=== PATIENT | female | born 1990 | race American Indian/Alaskan Native ===

== ENCOUNTER 2017-04-14 18:36 | Emergency (ER) | payer SELFPAY ==
--- NOTE | 2017-04-14 18:41 | Emergency Department Report ---
Chief Complaint: Wound/Laceration Stated Complaint: LAC ON LT FOOT Time Seen by Provider: 04/14/17 18:39 - HPI History of Present Illness: PT states this morning she stepped on broken glass. PT states she stepped on the glass around 1000. PT states went to work and had to leave an hour early due to the pain. - ROS Review of Systems: + laceration + foot pain - Exam Physical Exam: pt ambulatory with limp in triage MSE screening note: Focused history and physical exam performed. Due to findings the following was ordered: xr ED Disposition for MSE Condition: Stable
--- NOTE | 2017-04-14 19:23 | Emergency Department Report ---
ED Laceration HPI - HPI Chief Complaint: Wound/Laceration Stated Complaint: LAC ON LT FOOT Time Seen by Provider: 04/14/17 18:39 Tetanus Status: Up to Date Laceration Symptoms: Yes Pain, No Foreign Body Sensation, No Numbness, No Weakness Other History: 27-year-old female past medical history asthma presents with complaint of accidentally stepping on glass at home this morning. Patient sustained laceration to base of left great toe. Patient states she received a tetanus update earlier this year. I laceration is visible straight just below joint of the first toe on the plantar aspect of foot. ED Review of Systems ROS: Stated complaint: LAC ON LT FOOT Other details as noted in HPI Constitutional: denies: chills, fever Eyes: denies: eye pain, eye discharge, vision change ENT: denies: ear pain, throat pain Respiratory: denies: cough, shortness of breath, wheezing Cardiovascular: denies: chest pain, palpitations Endocrine: no symptoms reported Gastrointestinal: denies: abdominal pain, nausea, diarrhea Genitourinary: denies: urgency, dysuria, discharge Musculoskeletal: denies: back pain, joint swelling, arthralgia Skin: denies: rash, lesions Neurological: denies: headache, weakness, paresthesias Psychiatric: denies: anxiety, depression Hematological/Lymphatic: denies: easy bleeding, easy bruising ED Past Medical Hx - Past Medical History Hx Hypertension: No Hx Heart Attack/AMI: No Hx Congestive Heart Failure: No Hx Diabetes: No Hx Deep Vein Thrombosis: No Hx Liver Disease: No Hx Renal Disease: No Hx Sickle Cell Disease: No Hx Seizures: No Hx Psychiatric Treatment: Yes Hx Asthma: No Hx COPD: No Hx HIV: No Additional medical history: depression, bipolar - Surgical History Past Surgical History?: Yes Hx Pacemaker: No Hx Internal Defibrillator: No Additional Surgical History: c-sections - Social History Smoking Status: Former Smoker Substance Use Type: Alcohol - Medications Home Medications: Home Medications Medication Instructions Recorded Confirmed Last Taken Type Famotidine [Pepcid] 20 mg PO BID #40 tablet 05/09/14 Unknown Rx Hyoscyamine Subl [Levsin Sl] 0.125 mg SL Q4HR PRN #20 tablet 05/09/14 Unknown Rx Promethazine [Phenergan] 25 mg PO Q6H PRN #30 tablet 05/09/14 Unknown Rx Ibuprofen [Motrin] 600 mg PO Q8H PRN #30 tablet 04/14/17 Unknown Rx Sulfamethoxazole/Trimethoprim 1 each PO BID #14 tablet 04/14/17 Unknown Rx [Bactrim DS TAB] Laceration Physical Exam - Exam General: Vital signs noted. No distress. Alert and acting appropriately. Wound Length (cm): 3 Laceration Location: Lower Extremity (base of left great toe) Laceration Exam: Yes Normal Distal CMS, No Foreign Body, No Exposed Tendon, Vessel, or Nerve, No Tendon Injury ED Course Vital Signs 04/14/17 18:40 Temperature 99.2 F Pulse Rate 104 H Respiratory 16 Rate Blood Pressure 146/91 O2 Sat by Pulse 100 Oximetry - Laceration /Wound Repair Left Distal Toe Wound Location: lower extremity (base of left distal great toe ) Wound Length (cm): 3 Wound's Depth, Shape: superficial Irrigated w/ Saline (ccs): 50 Betadine Prep?: Yes Anesthesia: Lidocaine w/ Epi Volume Anesthetic (ccs): 4 Wound Debrided: minimal Wound Repaired With: sutures, Dermabond (Dermabond applied to the distal edges of the wound) Suture Size/Type: 5:0, proline Number of Sutures: 5 Layer Closure?: No Sterile Dressing Applied?: Yes Progress: Area anesthetized with lidocaine with epinephrine, good local anesthesia achieved, wound probed for any glass fragments no glass fragments on probing of the wound. Good closure achieved with 5-0 proline sutures, 5 placed. Dermabond used on distal edges of wound. Wrapped with gauze afterward. Minimal bleeding seizure tolerated well ED Medical Decision Making - Medical Decision Making A/P: Left foot Laceration 1-sutures to be removed in 10-14 days 2-tetanus vaccination up-to-date as per patient 3-Motrin when necessary, triple antibiotic ointment 4-patient's advised to return to the ED for any fevers chills pus drainage erythema at site of laceration 5- foot neurovascularly intact distal sensation and capillary refill intact, good closure achieved with sutures Critical care attestation.: If time is entered above; I have spent that time in minutes in the direct care of this critically ill patient, excluding procedure time. ED Disposition Clinical Impression: Foot laceration Qualifiers: Encounter type: initial encounter Laterality: left Qualified Code(s): S91.312A - Laceration without foreign body, left foot, initial encounter Disposition: TO HOME OR SELFCARE Is pt being admited?: No Does the pt Need Aspirin: No Condition: Stable Instructions: Suture Care (ED), Laceration (ED), Skin Adhesive Care (ED) Additional Instructions: Patient to return to the ED and approximately 10-12 days for suture removal Prescriptions: Ibuprofen [Motrin] 600 mg PO Q8H PRN #30 tablet PRN Reason: Pain Sulfamethoxazole/Trimethoprim [Bactrim DS TAB] 1 each PO BID #14 tablet Time of Disposition: 20:48
[2017-04-14] MEDS ORDERED: MOTRIN PO ONE (19:25)
[2017-04-14] MEDS ORDERED: TRIPLE ANTIBIOTIC TP ONE (19:25)
[2017-04-14] MEDS ORDERED: XYLOCAINE 2%/ EPI 1:200,000 INFILTRATI ONE (19:25)
[2017-04-14] MEDS ORDERED: XYLOCAINE 2%/EPI 1:100,000 INFILTRATI ONE (19:37)
[2017-04-14 20:31] VITALS: BP 139/82
== END 2017-04-14 20:30 | disposition home or self-care (01) ==
LOC: ED 18:36
DX: S91.312A Laceration without foreign body, left foot, initial encounter (principal); F31.9 Bipolar disorder, unspecified; Z87.891 Personal history of nicotine dependence
CPT/HCPCS: A6250

== ENCOUNTER 2018-01-16 10:55 | Emergency (ER) | payer BC ==
[2018-01-16 11:32] VITALS: BP 149/94
--- NOTE | 2018-01-16 12:01 | Emergency Department Report ---
ED General Adult HPI - General Chief complaint: Nausea/Vomiting/Diarrhea Stated complaint: NAUSEA,VOMITTING X 3DAYS Time Seen by Provider: 01/16/18 11:50 Source: patient Mode of arrival: Ambulatory Limitations: No Limitations - History of Present Illness Initial comments: Patient is 27 years old female with a history of abdominal migraine. Patient presented to the ER today complaining of generalized muscle cramps especially in the cough area. Patient is stated that she talk to her primary care physician and he told her that this might be her potassium is low so she came here to check her potassium. Patient denied any other symptoms. Patient denied abdominal pain, chest pain, nausea or vomiting. MD Complaint: muscle cramp - Related Data Previous Rx's Medication Instructions Recorded Last Taken Type Famotidine [Pepcid] 20 mg PO BID #40 tablet 05/09/14 Unknown Rx Hyoscyamine Subl [Levsin Sl] 0.125 mg SL Q4HR PRN #20 tablet 05/09/14 Unknown Rx Promethazine [Phenergan] 25 mg PO Q6H PRN #30 tablet 05/09/14 Unknown Rx Ibuprofen [Motrin] 600 mg PO Q8H PRN #30 tablet 04/14/17 Unknown Rx Sulfamethoxazole/Trimethoprim 1 each PO BID #14 tablet 04/14/17 Unknown Rx [Bactrim DS TAB] Allergies Allergy/AdvReac Type Severity Reaction Status Date / Time Penicillins AdvReac Shortness Verified 05/19/13 22:42 of Breath ED Review of Systems ROS: Stated complaint: NAUSEA,VOMITTING X 3DAYS Other details as noted in HPI Comment: All other systems reviewed and negative Constitutional: denies: chills Eyes: denies: eye pain Respiratory: denies: orthopnea Cardiovascular: denies: chest pain, palpitations, dyspnea on exertion Gastrointestinal: denies: abdominal pain, nausea, vomiting Musculoskeletal: other (muscle spasm) Neurological: denies: headache, weakness, numbness, paresthesias ED Past Medical Hx - Past Medical History Previous Medical History?: Yes Hx Hypertension: No Hx Heart Attack/AMI: No Hx Congestive Heart Failure: No Hx Diabetes: No Hx Deep Vein Thrombosis: No Hx Liver Disease: No Hx Renal Disease: No Hx Sickle Cell Disease: No Hx Seizures: No Hx Psychiatric Treatment: Yes Hx Asthma: No Hx COPD: No Hx HIV: No Additional medical history: depression, bipolar, "ABDOMINAL MIGRAINES " - Surgical History Past Surgical History?: Yes Hx Pacemaker: No Hx Internal Defibrillator: No Additional Surgical History: X 2 - Social History Smoking Status: Former Smoker Substance Use Type: Alcohol, Prescribed - Medications Home Medications: Home Medications Medication Instructions Recorded Confirmed Last Taken Type Famotidine [Pepcid] 20 mg PO BID #40 tablet 05/09/14 Unknown Rx Hyoscyamine Subl [Levsin Sl] 0.125 mg SL Q4HR PRN #20 tablet 05/09/14 Unknown Rx Promethazine [Phenergan] 25 mg PO Q6H PRN #30 tablet 05/09/14 Unknown Rx Ibuprofen [Motrin] 600 mg PO Q8H PRN #30 tablet 04/14/17 Unknown Rx Sulfamethoxazole/Trimethoprim 1 each PO BID #14 tablet 04/14/17 Unknown Rx [Bactrim DS TAB] ED Physical Exam - General Limitations: No Limitations General appearance: alert, in no apparent distress - Head Head exam: Present: atraumatic, normocephalic, normal inspection - Eye Eye exam: Present: normal appearance - ENT ENT exam: Present: normal exam, normal orophraynx - Neck Neck exam: Present: normal inspection, full ROM. Absent: tenderness, meningismus - Respiratory Respiratory exam: Present: normal lung sounds bilaterally. Absent: respiratory distress, wheezes, rales, rhonchi, chest wall tenderness - Cardiovascular Cardiovascular Exam: Present: regular rate, normal rhythm, normal heart sounds - GI/Abdominal GI/Abdominal exam: Present: soft, normal bowel sounds. Absent: distended, tenderness, guarding, rebound, rigid, organomegaly, mass, bruit, pulsatile mass , hernia - Extremities Exam Extremities exam: Present: normal inspection, full ROM, normal capillary refill - Back Exam Back exam: Present: normal inspection, full ROM. Absent: CVA tenderness (L) - Neurological Exam Neurological exam: Present: alert, oriented X3, CN II-XII intact, normal gait - Skin Skin exam: Present: warm, intact, normal color ED Course Vital Signs 01/16/18 11:27 Temperature 99 F Pulse Rate 105 H Respiratory 18 Rate Blood Pressure 149/94 O2 Sat by Pulse 100 Oximetry ED Medical Decision Making - Lab Data Result diagrams: 01/16/18 12:22 01/16/18 12:22 Critical care attestation.: If time is entered above; I have spent that time in minutes in the direct care of this critically ill patient, excluding procedure time. ED Disposition Clinical Impression: Muscle cramp Disposition: ELOPED Is pt being admited?: No Condition: Stable Referrals: PRIMARY CARE, [Primary Care Provider] - 3-5 Days Forms: AMA Form
[2018-01-16 12:16] LABS: Bilirubin,Urine NEG (Negative); Blood,Urine NEG (Negative); Color,Urine Amber (Yellow); Mucus,Urine 3+ /HPF
[2018-01-16 12:38] LABS: Hematocrit 50.5 % (30.3-42.9); Hemoglobin 16.6 gm/dl (10.1-14.3); Mean Corpuscular HGB Conc 33 % (30-34); Mean Corpuscular Hemoglobin 28 pg (28-32); Mean Corpuscular Volume 85 fl (79-97); Red Blood Count 5.92 M/mm3 (3.65-5.03); Red Cell Distribution Width 13.7 % (13.2-15.2)
[2018-01-16 12:39] LABS: Basophils # (Auto) 0.1 K/mm3 (0.0-0.1); Basophils % (Auto) 0.6 % (0.0-1.8); Eosinophils % (Auto) 0.3 % (0.0-4.3); Lymphocytes # (Auto) 2.7 K/mm3 (1.2-5.4); Lymphocytes % (Auto) 17.7 % (13.4-35.0); Mean Platelet Volume 9.6 fl (6-12); Monocytes # (Auto) 1.2 K/mm3 (0.0-0.8); Monocytes % (Auto) 7.8 % (0.0-7.3); Platelet Count 236 K/mm3 (140-440)
[2018-01-16 12:53] LABS: Alanine Aminotransferase 10 units/L (7-56); Albumin 4.3 g/dL (3.9-5); BUN/Creatinine Ratio 7; Blood Urea Nitrogen 6 mg/dL (7-17); Calcium 9.3 mg/dL (8.4-10.2); Hemolysis Index 22; Lipase 138 units/L (13-60)
== END 2018-01-16 12:27 | disposition left against medical advice (07) ==
LOC: ED 10:55
DX: R25.2 Cramp and spasm (principal); Z79.899 Other long term (current) drug therapy; G43.D0 Abdominal migraine, not intractable; F31.9 Bipolar disorder, unspecified; Z87.891 Personal history of nicotine dependence; Z88.0 Allergy status to penicillin; R11.2 Nausea with vomiting, unspecified
CPT/HCPCS: 36415; 80053; 81001; 83690; 85025; 99282; 99283

== ENCOUNTER 2018-01-16 19:51 | Emergency (ER) | payer BC ==
[2018-01-16 20:31] LABS: Basophils % (Auto) 0.7 % (0.0-1.8); Eosinophils % (Auto) 0.3 % (0.0-4.3); Hematocrit 49.4 % (30.3-42.9); Hemoglobin 16.2 gm/dl (10.1-14.3); Lymphocytes % (Auto) 17.9 % (13.4-35.0); Mean Corpuscular HGB Conc 33 % (30-34); Mean Corpuscular Hemoglobin 28 pg (28-32); Mean Corpuscular Volume 85 fl (79-97); Monocytes % (Auto) 6.6 % (0.0-7.3); Platelet Count 288 K/mm3 (140-440); Red Blood Count 5.82 M/mm3 (3.65-5.03); Red Cell Distribution Width 13.5 % (13.2-15.2)
[2018-01-16 20:32] LABS: Basophils # (Auto) 0.1 K/mm3 (0.0-0.1); Eosinophils # (Auto) 0.1 K/mm3 (0.0-0.4); Lymphocytes # (Auto) 3.4 K/mm3 (1.2-5.4); Monocytes # (Auto) 1.3 K/mm3 (0.0-0.8)
[2018-01-16] MEDS ORDERED: NACL 0.9% 1000 ML 1,000 ML IV ONE (20:40)
[2018-01-16] MEDS ORDERED: ZOFRAN IV ONE (20:40)
[2018-01-16] MEDS ORDERED: DILAUDID IV ONE (20:40)
[2018-01-16] MEDS ORDERED: BENADRYL IV ONE (20:40)
[2018-01-16] MEDS ORDERED: REGLAN IV ONE (20:40)
[2018-01-16 20:42] LABS: Alanine Aminotransferase 12 units/L (7-56); Albumin 4.5 g/dL (3.9-5); BUN/Creatinine Ratio 7; Blood Urea Nitrogen 6 mg/dL (7-17); Calcium 9.2 mg/dL (8.4-10.2); Hemolysis Index 0
[2018-01-16 20:45] LABS: Bilirubin,Urine NEG (Negative); Blood,Urine NEG (Negative); Color,Urine Amber (Yellow); Mucus,Urine 3+ /HPF
[2018-01-16] MEDS ORDERED: K-DUR PO ONE (20:55)
--- NOTE | 2018-01-16 21:17 | Emergency Department Report ---
ED Abdominal Pain HPI - General Chief Complaint: Abdominal Pain Stated Complaint: N/V,RIGHT LEG PAIN Time Seen by Provider: 01/16/18 20:33 Source: patient Mode of arrival: Ambulatory Limitations: No Limitations - History of Present Illness Initial Comments: 27-year-old female with a past medical history of abdominal migraines, bipolar disorder, and C-sections 2 presents to the hospital complaining of abdominal pain secondary to abdominal migraine for the past 5 days. Patient complains of a constant clenching pain to the epigastric area worse with palpation. Pain rated 8/10 in intensity. Patient taken Zofran and Percocet at home without improvement. She was at [facility] 5 days ago for the same symptoms and states that she had a ultrasound showing a normal gallbladder. Patient had a multiple episodes of nausea vomiting and having difficulty tolerating by mouth. She denies hematochezia, fever, hematemesis, or dysuria. She's been having intermittent cramping to both legs which is similar to episodes of hypokalemia in the past. Severity scale (0 -10): 6 - Related Data Previous Rx's Medication Instructions Recorded Last Taken Type Famotidine [Pepcid] 20 mg PO BID #40 tablet 05/09/14 Unknown Rx Hyoscyamine Subl [Levsin Sl] 0.125 mg SL Q4HR PRN #20 tablet 05/09/14 Unknown Rx Promethazine [Phenergan] 25 mg PO Q6H PRN #30 tablet 05/09/14 Unknown Rx Ibuprofen [Motrin] 600 mg PO Q8H PRN #30 tablet 04/14/17 Unknown Rx Sulfamethoxazole/Trimethoprim 1 each PO BID #14 tablet 04/14/17 Unknown Rx [Bactrim DS TAB] Potassium Chloride [K-Dur] 20 meq PO BID #6 tab 01/16/18 Unknown Rx Promethazine [Phenergan TAB] 25 mg PO Q6HR PRN #30 tab 01/16/18 Unknown Rx Promethazine [Phenergan] 25 mg ND Q6HR PRN #20 supp.rect 01/16/18 Unknown Rx Allergies Allergy/AdvReac Type Severity Reaction Status Date / Time Penicillins AdvReac Shortness Verified 05/19/13 22:42 of Breath ED Review of Systems ROS: Stated complaint: N/V,RIGHT LEG PAIN Other details as noted in HPI Comment: All other systems reviewed and negative ED Past Medical Hx - Past Medical History Previous Medical History?: Yes Hx Hypertension: No Hx Heart Attack/AMI: No Hx Congestive Heart Failure: No Hx Diabetes: No Hx Deep Vein Thrombosis: No Hx Liver Disease: No Hx Renal Disease: No Hx Sickle Cell Disease: No Hx Seizures: No Hx Psychiatric Treatment: Yes Hx Asthma: No Hx COPD: No Hx HIV: No Additional medical history: depression, bipolar, "ABDOMINAL MIGRAINES " - Surgical History Past Surgical History?: Yes Hx Pacemaker: No Hx Internal Defibrillator: No Additional Surgical History: X 2 - Social History Smoking Status: Former Smoker Substance Use Type: None - Medications Home Medications: Home Medications Medication Instructions Recorded Confirmed Last Taken Type Famotidine [Pepcid] 20 mg PO BID #40 tablet 05/09/14 Unknown Rx Hyoscyamine Subl [Levsin Sl] 0.125 mg SL Q4HR PRN #20 tablet 05/09/14 Unknown Rx Promethazine [Phenergan] 25 mg PO Q6H PRN #30 tablet 05/09/14 Unknown Rx Ibuprofen [Motrin] 600 mg PO Q8H PRN #30 tablet 04/14/17 Unknown Rx Sulfamethoxazole/Trimethoprim 1 each PO BID #14 tablet 04/14/17 Unknown Rx [Bactrim DS TAB] Potassium Chloride [K-Dur] 20 meq PO BID #6 tab 01/16/18 Unknown Rx Promethazine [Phenergan TAB] 25 mg PO Q6HR PRN #30 tab 01/16/18 Unknown Rx Promethazine [Phenergan] 25 mg ND Q6HR PRN #20 supp.rect 01/16/18 Unknown Rx ED Physical Exam - General Limitations: No Limitations - Other Other exam information: General: No limitations, patient is alert in no acute distress Head exam: Atraumatic, normocephalic Eyes exam: Normal appearance, nonicteric sclera, pink conjunctivae ENT: Moist mucous membrane, normal oropharynx Neck exam: Normal inspection, full range of motion, no meningismus nontender Respiratory exam: Clear to auscultation bilateral, no wheezes, rales, crackles Cardiovascular: Normal rate and rhythm, normal heart sounds Abdomen: Soft, nondistended, epigastric area of maximum tenderness, normal bowel sounds, no rebound or guarding Extremity: Full range of motion normal inspection no deformity Back: Normal Inspection, full range of motion, no tenderness Neurologic: Alert, oriented x3, cranial nerves intact, no motor or sensory deficit Psychiatric: normal affect, normal mood Skin: Warm, dry, intact ED Course Vital Signs 01/16/18 01/16/18 01/16/18 19:50 20:24 20:30 Temperature 98.4 F Pulse Rate 131 H 105 H Respiratory 22 19 Rate Blood Pressure 152/87 152/97 Blood Pressure [Left] O2 Sat by Pulse 97 99 100 Oximetry 01/16/18 01/16/18 01/16/18 20:36 21:30 22:30 Temperature 99.6 F Pulse Rate 102 H 90 81 Respiratory 18 17 15 Rate Blood Pressure 108/68 118/79 Blood Pressure 141/95 [Left] O2 Sat by Pulse 100 99 99 Oximetry ED Medical Decision Making - Lab Data Result diagrams: 01/16/18 20:13 01/16/18 20:13 Lab Results 01/16/18 01/16/18 01/16/18 Range/Units 20:13 20:13 20:13 WBC 19.0 H (4.5-11.0) K/mm3 RBC 5.82 H (3.65-5.03) M/mm3 Hgb 16.2 H (10.1-14.3) gm/dl Hct 49.4 H (30.3-42.9) % MCV 85 (79-97) fl MCH 28 (28-32) pg MCHC 33 (30-34) % RDW 13.5 (13.2-15.2) % Plt Count 288 (140-440) K/mm3 Lymph % (Auto) 17.9 (13.4-35.0) % [place] % (Auto) 6.6 (0.0-7.3) % Eos % (Auto) 0.3 (0.0-4.3) % Baso % (Auto) 0.7 (0.0-1.8) % Lymph # 3.4 (1.2-5.4) K/mm3 [place] # 1.3 H (0.0-0.8) K/mm3 Eos # 0.1 (0.0-0.4) K/mm3 Baso # 0.1 (0.0-0.1) K/mm3 Add Manual Diff Complete Seg Neutrophils % 74.5 H (40.0-70.0) % Seg Neutrophils # 14.1 H (1.8-7.7) K/mm3 Sodium 139 (137-145) mmol/L Potassium 2.9 L* (3.6-5.0) mmol/L Chloride 94.8 L (98-107) mmol/L Carbon Dioxide 30 (22-30) mmol/L Anion Gap 17 mmol/L BUN 6 L (7-17) mg/dL Creatinine 0.9 (0.7-1.2) mg/dL Estimated GFR > 60 ml/min BUN/Creatinine Ratio 7 % Glucose 154 H (65-100) mg/dL Calcium 9.2 (8.4-10.2) mg/dL Magnesium (1.7-2.3) mg/dL Total Bilirubin 1.00 (0.1-1.2) mg/dL AST 13 (5-40) units/L ALT 12 (7-56) units/L Alkaline Phosphatase 86 (35-129) units/L Total Protein 8.1 (6.3-8.2) g/dL Albumin 4.5 (3.9-5) g/dL Albumin/Globulin Ratio 1.3 % Lipase (13-60) units/L HCG, Qual Negative (Negative) Urine Color (Yellow) Urine Turbidity (Clear) Urine pH (5.0-7.0) Ur Specific [place] (1.003-1.030) Urine Protein (Negative) mg/dL Urine Glucose (UA) (Negative) mg/dL Urine Ketones (Negative) mg/dL Urine Blood (Negative) Urine Nitrite (Negative) Urine Bilirubin (Negative) Urine Urobilinogen (<2.0) mg/dL Ur Leukocyte Esterase (Negative) Urine WBC (Auto) (0.0-6.0) /HPF Urine RBC (Auto) (0.0-6.0) /HPF U Epithel Cells (Auto) (0-13.0) /HPF Urine Mucus /HPF 01/16/18 01/16/18 01/16/18 Range/Units 20:13 20:58 Unknown WBC (4.5-11.0) K/mm3 RBC (3.65-5.03) M/mm3 Hgb (10.1-14.3) gm/dl Hct (30.3-42.9) % MCV (79-97) fl MCH (28-32) pg MCHC (30-34) % RDW (13.2-15.2) % Plt Count (140-440) K/mm3 Lymph % (Auto) (13.4-35.0) % [place] % (Auto) (0.0-7.3) % Eos % (Auto) (0.0-4.3) % Baso % (Auto) (0.0-1.8) % Lymph # (1.2-5.4) K/mm3 [place] # (0.0-0.8) K/mm3 Eos # (0.0-0.4) K/mm3 Baso # (0.0-0.1) K/mm3 Add Manual Diff Seg Neutrophils % (40.0-70.0) % Seg Neutrophils # (1.8-7.7) K/mm3 Sodium (137-145) mmol/L Potassium (3.6-5.0) mmol/L Chloride (98-107) mmol/L Carbon Dioxide (22-30) mmol/L Anion Gap mmol/L BUN (7-17) mg/dL Creatinine (0.7-1.2) mg/dL Estimated GFR ml/min BUN/Creatinine Ratio % Glucose (65-100) mg/dL Calcium (8.4-10.2) mg/dL Magnesium 1.90 (1.7-2.3) mg/dL Total Bilirubin (0.1-1.2) mg/dL AST (5-40) units/L ALT (7-56) units/L Alkaline Phosphatase (35-129) units/L Total Protein (6.3-8.2) g/dL Albumin (3.9-5) g/dL Albumin/Globulin Ratio % Lipase 24 (13-60) units/L HCG, Qual (Negative) Urine Color [place] (Yellow) Urine Turbidity Clear (Clear) Urine pH 5.0 (5.0-7.0) Ur Specific [place] 1.029 (1.003-1.030) Urine Protein 100 mg/dl (Negative) mg/dL Urine Glucose (UA) Neg (Negative) mg/dL Urine Ketones Tr (Negative) mg/dL Urine Blood Neg (Negative) Urine Nitrite Neg (Negative) Urine Bilirubin Neg (Negative) Urine Urobilinogen 4.0 (<2.0) mg/dL Ur Leukocyte Esterase Neg (Negative) Urine WBC (Auto) 4.0 (0.0-6.0) /HPF Urine RBC (Auto) 5.0 (0.0-6.0) /HPF U Epithel Cells (Auto) 5.0 (0-13.0) /HPF Urine Mucus 3+ /HPF - Radiology Data Radiology results: report reviewed ct a/p IV contrast PROCEDURE: CT ABDOMEN PELVIS W CON TECHNIQUE: Computerized axial tomography of the abdomen and pelvis was performed after the IV injection of iodinated nonionic contrast. HISTORY: abdominal pain, n,v hx of abd migraines, wbc 19 COMPARISON: No prior studies are available for comparison. FINDINGS: Liver, spleen, and adrenal glands are within normal limits. Bilateral kidneys demonstrate uniform enhancement without hydronephrosis. Aorta is of normal caliber. There is no free fluid or free air. Gallbladder is unremarkable. Small bowel loops are within normal limits. Appendix is normal. Mild degree degenerative changes are noted involving the lumbar facets. IMPRESSION: No acute intra-abdominal or pelvic pathology. - Differential Diagnosis abdominal migraine, gastroenteritis, appendicitis, pancreatitis Critical care attestation.: If time is entered above; I have spent that time in minutes in the direct care of this critically ill patient, excluding procedure time. ED Disposition Clinical Impression: Abdominal migraine, Hypokalemia Disposition: DC-01 TO HOME OR SELFCARE Is pt being admited?: No Does the pt Need Aspirin: No Condition: Stable Instructions: Abdominal Pain (ED), Hypokalemia (ED) Additional Instructions: Take the rectal or Phenergan suppositories as prescribed. Take the potassium tablets. She is to drink plenty of fluids. Return if symptoms worsen as indicated by your discharge instructions. Follow-up with your primary care doctor. Prescriptions: Potassium Chloride [K-Dur] 20 meq PO BID #6 tab Promethazine [Phenergan TAB] 25 mg PO Q6HR PRN #30 tab PRN Reason: Nausea Promethazine [Phenergan] 25 mg ND Q6HR PRN #20 supp.rect PRN Reason: Nausea And Vomiting Referrals: PRIMARY CARE, [Primary Care Provider] - 3-5 Days Time of Disposition: 22:52
--- NOTE | 2018-01-16 21:49 | Cat Scan Report ---
FINAL REPORT PROCEDURE: CT ABDOMEN PELVIS W CON TECHNIQUE: Computerized axial tomography of the abdomen and pelvis was performed after the IV injection of iodinated nonionic contrast. HISTORY: abdominal pain, n,v hx of abd migraines, wbc 19 COMPARISON: No prior studies are available for comparison. FINDINGS: Liver, spleen, and adrenal glands are within normal limits. Bilateral kidneys demonstrate uniform enhancement without hydronephrosis. Aorta is of normal caliber. There is no free fluid or free air. Gallbladder is unremarkable. Small bowel loops are within normal limits. Appendix is normal. Mild degree degenerative changes are noted involving the lumbar facets. IMPRESSION: No acute intra-abdominal or pelvic pathology.
[2018-01-16 22:42] VITALS: BP 118/79
== END 2018-01-16 23:11 | disposition home or self-care (01) ==
LOC: ED 19:51
DX: G43.D0 Abdominal migraine, not intractable (principal); E87.6 Hypokalemia; F31.9 Bipolar disorder, unspecified; Z87.891 Personal history of nicotine dependence; Z88.0 Allergy status to penicillin
CPT/HCPCS: 36415; 74177; 80053; 81001; 83690; 83735; 84703; 85025; 96361; 96374; 96375; 99284; J1170; J1200; J2405; J2765; J7030; Q9967

== ENCOUNTER 2018-02-21 17:33 | Emergency (ER) | payer SELFPAY ==
[2018-02-21 17:39] VITALS: BP 135/87
[2018-02-21] MEDS ORDERED: DECADRON IM ONE (18:12)
--- NOTE | 2018-02-21 18:33 | Emergency Department Report ---
ED Allergic Reaction HPI - General Chief complaint: Allergic Reaction Stated complaint: STUNG BY MULTIPLE BEES/LEG PAIN Time Seen by Provider: 02/21/18 18:11 Source: patient Mode of arrival: Ambulatory Limitations: No Limitations - History of Present Illness Initial Comments: This is a 27-year-old female nontoxic, well nourished in appearance, no acute signs of distress presents to the ED with c/o of multiple swellings that is bee sting. Patient states she was in the garden today and has multiple bee stings to upper and lower extremities. Patient states it is itching and redness. Patient denies any drooling, hoarseness or facial swelling. Patient denies any trauma. She denies any fever, chills, nausea, vomiting, chest pain, shortness of breath, headache, stiff neck, numbness or tingling. Patient states allergies to penicillin. Past medical history includes liver disease. MD Complaint: allergic reaction -: This afternoon Exposure: other (bee) Symptoms: rash, itching Severity: mild Treatment Prior to Arrival: none Previous Allergy History: none - Related Data Previous Rx's Medication Instructions Recorded Last Taken Type Famotidine [Pepcid] 20 mg PO BID #40 tablet 05/09/14 Unknown Rx Hyoscyamine Subl [Levsin Sl] 0.125 mg SL Q4HR PRN #20 tablet 05/09/14 Unknown Rx Promethazine [Phenergan] 25 mg PO Q6H PRN #30 tablet 05/09/14 Unknown Rx Ibuprofen [Motrin] 600 mg PO Q8H PRN #30 tablet 04/14/17 Unknown Rx Sulfamethoxazole/Trimethoprim 1 each PO BID #14 tablet 04/14/17 Unknown Rx [Bactrim DS TAB] Potassium Chloride [K-Dur] 20 meq PO BID #6 tab 01/16/18 Unknown Rx Promethazine [Phenergan TAB] 25 mg PO Q6HR PRN #30 tab 01/16/18 Unknown Rx Promethazine [Phenergan] 25 mg NM Q6HR PRN #20 supp.rect 01/16/18 Unknown Rx Prednisone [predniSONE 10 mg 10 mg PO .TAPER #1 tab.ds.pk 02/21/18 Unknown Rx (6-Day Pack, 21 Tabs)] diphenhydrAMINE [Benadryl CAP] 25 mg PO Q6HR PRN #20 capsule 02/21/18 Unknown Rx Allergies Allergy/AdvReac Type Severity Reaction Status Date / Time Penicillins AdvReac Shortness Verified 05/19/13 22:42 of Breath ED Review of Systems ROS: Stated complaint: STUNG BY MULTIPLE BEES/LEG PAIN Other details as noted in HPI Constitutional: denies: chills, fever Eyes: denies: eye pain, eye discharge, vision change ENT: denies: ear pain, throat pain Respiratory: denies: cough, shortness of breath, wheezing Cardiovascular: denies: chest pain, palpitations Endocrine: no symptoms reported Gastrointestinal: denies: abdominal pain, nausea, diarrhea Genitourinary: denies: urgency, dysuria, discharge Musculoskeletal: denies: back pain, joint swelling, arthralgia Skin: denies: rash, lesions Neurological: denies: headache, weakness, paresthesias Psychiatric: denies: anxiety, depression Hematological/Lymphatic: denies: easy bleeding, easy bruising ED Past Medical Hx - Past Medical History Hx Hypertension: No Hx Heart Attack/AMI: No Hx Congestive Heart Failure: No Hx Diabetes: No Hx Deep Vein Thrombosis: No Hx Liver Disease: No Hx Renal Disease: No Hx Sickle Cell Disease: No Hx Seizures: No Hx Psychiatric Treatment: Yes Hx Asthma: No Hx COPD: No Hx HIV: No Additional medical history: depression, bipolar, "ABDOMINAL MIGRAINES " - Surgical History Hx Pacemaker: No Hx Internal Defibrillator: No Additional Surgical History: X 2 - Social History Smoking Status: Current Some Day Smoker Substance Use Type: Alcohol - Medications Home Medications: Home Medications Medication Instructions Recorded Confirmed Last Taken Type Famotidine [Pepcid] 20 mg PO BID #40 tablet 05/09/14 Unknown Rx Hyoscyamine Subl [Levsin Sl] 0.125 mg SL Q4HR PRN #20 tablet 05/09/14 Unknown Rx Promethazine [Phenergan] 25 mg PO Q6H PRN #30 tablet 05/09/14 Unknown Rx Ibuprofen [Motrin] 600 mg PO Q8H PRN #30 tablet 04/14/17 Unknown Rx Sulfamethoxazole/Trimethoprim 1 each PO BID #14 tablet 04/14/17 Unknown Rx [Bactrim DS TAB] Potassium Chloride [K-Dur] 20 meq PO BID #6 tab 01/16/18 Unknown Rx Promethazine [Phenergan TAB] 25 mg PO Q6HR PRN #30 tab 01/16/18 Unknown Rx Promethazine [Phenergan] 25 mg NM Q6HR PRN #20 supp.rect 01/16/18 Unknown Rx Prednisone [predniSONE 10 mg 10 mg PO .TAPER #1 tab.ds.pk 02/21/18 Unknown Rx (6-Day Pack, 21 Tabs)] diphenhydrAMINE [Benadryl CAP] 25 mg PO Q6HR PRN #20 capsule 02/21/18 Unknown Rx ED Physical Exam - General Limitations: No Limitations General appearance: alert, in no apparent distress - Head Head exam: Present: atraumatic, normocephalic - Eye Eye exam: Present: normal appearance Pupils: Present: normal accommodation - ENT ENT exam: Present: normal exam, normal orophraynx, mucous membranes moist, TM's normal bilaterally, normal external ear exam, other (no facial swelling. No angioedmea.) - Neck Neck exam: Present: normal inspection, full ROM. Absent: tenderness, meningismus, lymphadenopathy - Respiratory Respiratory exam: Present: normal lung sounds bilaterally. Absent: respiratory distress, wheezes, rales, rhonchi, stridor, chest wall tenderness, accessory muscle use, decreased breath sounds, prolonged expiratory - Cardiovascular Cardiovascular Exam: Present: regular rate, normal rhythm. Absent: systolic murmur, diastolic murmur, rubs, gallop - GI/Abdominal GI/Abdominal exam: Present: soft, normal bowel sounds - Extremities Exam Extremities exam: Present: normal inspection, full ROM, other (mutiple redness or swelling and itching to upper and lower extremities). Absent: tenderness - Back Exam Back exam: Present: normal inspection, full ROM - Neurological Exam Neurological exam: Present: alert, oriented X3, normal gait - Psychiatric Psychiatric exam: Present: normal affect, normal mood - Skin Skin exam: Present: warm, dry, intact, normal color. Absent: rash ED Course Vital Signs 02/21/18 17:36 Temperature 98.2 F Pulse Rate 109 H Respiratory 18 Rate Blood Pressure 135/87 O2 Sat by Pulse 99 Oximetry ED Medical Decision Making - Medical Decision Making This is a 27-year-old female that presents with allergic reaction. Patient is stable was examined by me. There is no facial swelling. No angioedema. There is no cellulitis. No hoarseness. Patient received Decadron in the ED IM. Patient is discharged with prednisone and Benadryl. Patient was referred to Follow-up with a primary care doctor in 3-5 days or if symptoms worsen and continue return to emergency room as soon as possible. At time of discharge, the patient does not seem toxic or ill in appearance. No acute signs of distress noted. Patient agrees to discharge treatment plan of care. No further questions noted by the patient. Critical care attestation.: If time is entered above; I have spent that time in minutes in the direct care of this critically ill patient, excluding procedure time. ED Disposition Clinical Impression: Allergic reaction Qualifiers: Encounter type: initial encounter Qualified Code(s): T78.40XA - Allergy, unspecified, initial encounter Disposition: TO HOME OR SELFCARE Is pt being admited?: No Does the pt Need Aspirin: No Condition: Stable Instructions: Insect Bite or Sting (ED), Diphenhydramine (By mouth), Prednisone (By mouth) Additional Instructions: Follow-up with a primary care doctor in 3-5 days or if symptoms worsen and continue return to emergency room as soon as possible. Do not operate any machinery while taking Benadryl due to possible drowsiness. Prescriptions: diphenhydrAMINE [Benadryl CAP] 25 mg PO Q6HR PRN #20 capsule PRN Reason: Itching Prednisone [predniSONE 10 mg (6-Day Pack, 21 Tabs)] 10 mg PO .TAPER #1 tab.ds.pk Referrals: PRIMARY CARE, [Primary Care Provider] - 3-5 Days REHANA NEGRON MD [Staff Physician] - 3-5 Days [facility] [Outside] - 3-5 Days [facility] [Outside] - 3-5 Days Forms: Work/School Release Form(ED)
== END 2018-02-21 18:44 | disposition home or self-care (01) ==
LOC: ED 17:33
DX: T78.40XA Allergy, unspecified, initial encounter (principal); F17.200 Nicotine dependence, unspecified, uncomplicated; Z88.0 Allergy status to penicillin; X58.XXXA Exposure to other specified factors, initial encounter
CPT/HCPCS: 96372; 99282; J1100

== ENCOUNTER 2018-05-15 08:21 | Emergency (ER) | payer BC ==
[2018-05-15] MEDS ORDERED: ZOFRAN IV ONE ×2 (10:41→13:07)
--- NOTE | 2018-05-15 10:59 | Emergency Department Report ---
ED N/V/D HPI - General Chief complaint: Medical Clearance Stated complaint: NAUSEA/3DAYS VOMIT/CRAMPS Time Seen by Provider: 05/15/18 10:12 Source: patient Mode of arrival: Ambulatory Limitations: No Limitations - History of Present Illness Initial comments: 28-year-old female with a past medical history of bipolar, abdominal migraines, and 2 presents to the Hospital complains of continued nausea and vomiting with by mouth intolerance 5 days. Patient admits that she drank too much alcohol over the weekend and presented to [facility] Thursday with nausea, vomiting, diarrhea, and abdominal pain. She was diagnosed with alcoholic gastritis and started on Protonix. She was not provided any medication for nausea or vomiting. She continues to have nausea and vomiting and unable to tolerate even liquids. Has not had any urinary output since yesterday morning and hasn't had a bowel movement in the past 4-5 days but she has not eaten much either. She complains of intimate M cramps to her lower extremities and she is concerned about hypokalemia. She also continues to have intermittent upper and lower abdominal pain which she thinks is secondary to vomiting. No reports of fever, melena, or hematochezia. Patient states she did notice a little bit of blood in her vomit that has since resolved. - Related Data Previous Rx's Medication Instructions Recorded Last Taken Type Famotidine [Pepcid] 20 mg PO BID #40 tablet 05/09/14 Unknown Rx Hyoscyamine Subl [Levsin Sl] 0.125 mg SL Q4HR PRN #20 tablet 05/09/14 Unknown Rx Promethazine [Phenergan] 25 mg PO Q6H PRN #30 tablet 05/09/14 Unknown Rx Ibuprofen [Motrin] 600 mg PO Q8H PRN #30 tablet 04/14/17 Unknown Rx Sulfamethoxazole/Trimethoprim 1 each PO BID #14 tablet 04/14/17 Unknown Rx [Bactrim DS TAB] Promethazine [Phenergan TAB] 25 mg PO Q6HR PRN #30 tab 01/16/18 Unknown Rx Promethazine [Phenergan] 25 mg [place] Q6HR PRN #20 supp.rect 01/16/18 Unknown Rx Prednisone [predniSONE 10 mg 10 mg PO .TAPER #1 tab.ds.pk 02/21/18 Unknown Rx (6-Day Pack, 21 Tabs)] diphenhydrAMINE [Benadryl CAP] 25 mg PO Q6HR PRN #20 capsule 02/21/18 Unknown Rx Potassium Chloride [K-Dur] 20 meq PO BID #6 tab 05/15/18 Unknown Rx Promethazine [Phenergan] 25 mg [place] Q6HR PRN #20 supp.rect 05/15/18 Unknown Rx traMADol [Ultram 50 MG tab] 50 mg PO Q6HR PRN #20 tablet 05/15/18 Unknown Rx Allergies Allergy/AdvReac Type Severity Reaction Status Date / Time Penicillins AdvReac Shortness Verified 05/15/18 08:23 of Breath ED Review of Systems ROS: Stated complaint: NAUSEA/3DAYS VOMIT/CRAMPS Other details as noted in HPI Comment: All other systems reviewed and negative ED Past Medical Hx - Past Medical History Hx Hypertension: No Hx Heart Attack/AMI: No Hx Congestive Heart Failure: No Hx Diabetes: No Hx Deep Vein Thrombosis: No Hx Liver Disease: No Hx Renal Disease: No Hx Sickle Cell Disease: No Hx Seizures: No Hx Psychiatric Treatment: Yes Hx Asthma: No Hx COPD: No Hx HIV: No Additional medical history: depression, bipolar, "ABDOMINAL MIGRAINES " - Surgical History Hx Pacemaker: No Hx Internal Defibrillator: No Additional Surgical History: X 2 - Social History Smoking Status: Never Smoker Substance Use Type: Alcohol - Medications Home Medications: Home Medications Medication Instructions Recorded Confirmed Last Taken Type Famotidine [Pepcid] 20 mg PO BID #40 tablet 05/09/14 Unknown Rx Hyoscyamine Subl [Levsin Sl] 0.125 mg SL Q4HR PRN #20 tablet 05/09/14 Unknown Rx Promethazine [Phenergan] 25 mg PO Q6H PRN #30 tablet 05/09/14 Unknown Rx Ibuprofen [Motrin] 600 mg PO Q8H PRN #30 tablet 04/14/17 Unknown Rx Sulfamethoxazole/Trimethoprim 1 each PO BID #14 tablet 04/14/17 Unknown Rx [Bactrim DS TAB] Promethazine [Phenergan TAB] 25 mg PO Q6HR PRN #30 tab 01/16/18 Unknown Rx Promethazine [Phenergan] 25 mg VT Q6HR PRN #20 supp.rect 01/16/18 Unknown Rx Prednisone [predniSONE 10 mg 10 mg PO .TAPER #1 tab.ds.pk 02/21/18 Unknown Rx (6-Day Pack, 21 Tabs)] diphenhydrAMINE [Benadryl CAP] 25 mg PO Q6HR PRN #20 capsule 02/21/18 Unknown Rx Potassium Chloride [K-Dur] 20 meq PO BID #6 tab 05/15/18 Unknown Rx Promethazine [Phenergan] 25 mg VT Q6HR PRN #20 supp.rect 05/15/18 Unknown Rx traMADol [Ultram 50 MG tab] 50 mg PO Q6HR PRN #20 tablet 05/15/18 Unknown Rx ED Physical Exam - General Limitations: No Limitations - Other Other exam information: General: No limitations, patient is alert in no acute distress Head exam: Atraumatic, normocephalic Eyes exam: Normal appearance ENT: Moist mucous membrane Neck exam: Normal inspection, full range of motion, no meningismus nontender Respiratory exam: Clear to auscultation bilateral, no wheezes, rales, crackles Cardiovascular: Normal rate and rhythm, normal heart sounds Abdomen: Soft, nondistended, upper abdominal tenderness to palpation. Normal bowel sounds, no rebound or guarding Extremity: Full range of motion normal inspection no deformity Back: Normal Inspection, full range of motion, no tenderness Neurologic: Alert, oriented x3, cranial nerves intact, no motor or sensory deficit Psychiatric: normal affect, normal mood Skin: Warm, dry, intact ED Course Vital Signs 05/15/18 05/15/18 08:23 11:02 Temperature 99.2 F Pulse Rate 96 H Respiratory 16 18 Rate Blood Pressure 148/97 O2 Sat by Pulse 100 Oximetry ED Medical Decision Making - Lab Data Result diagrams: 05/15/18 Unknown 05/15/18 Unknown Lab Results 05/15/18 05/15/18 05/15/18 Range/Units Unknown Unknown Unknown WBC 12.8 H (4.5-11.0) K/mm3 RBC 5.68 H (3.65-5.03) M/mm3 Hgb 16.0 H (10.1-14.3) gm/dl Hct 48.2 H (30.3-42.9) % MCV 85 (79-97) fl MCH 28 (28-32) pg MCHC 33 (30-34) % RDW 13.8 (13.2-15.2) % Plt Count 264 (140-440) K/mm3 Lymph % (Auto) 14.2 (13.4-35.0) % [place] % (Auto) 6.3 (0.0-7.3) % Eos % (Auto) 0.1 (0.0-4.3) % Baso % (Auto) 0.6 (0.0-1.8) % Lymph # 1.8 (1.2-5.4) K/mm3 [place] # 0.8 (0.0-0.8) K/mm3 Eos # 0.0 (0.0-0.4) K/mm3 Baso # 0.1 (0.0-0.1) K/mm3 Seg Neutrophils % 78.8 H (40.0-70.0) % Seg Neutrophils # 10.1 H (1.8-7.7) K/mm3 Sodium 143 (137-145) mmol/L Potassium 3.3 L (3.6-5.0) mmol/L Chloride 99.4 (98-107) mmol/L Carbon Dioxide 28 (22-30) mmol/L Anion Gap 19 mmol/L BUN 8 (7-17) mg/dL Creatinine 0.8 (0.7-1.2) mg/dL Estimated GFR > 60 ml/min BUN/Creatinine Ratio 10 % Glucose 107 H (65-100) mg/dL Calcium 9.4 (8.4-10.2) mg/dL Magnesium 2.10 (1.7-2.3) mg/dL Total Bilirubin 0.60 (0.1-1.2) mg/dL AST 15 (5-40) units/L ALT 16 (7-56) units/L Alkaline Phosphatase 77 (35-129) units/L Total Protein 8.1 (6.3-8.2) g/dL Albumin 4.6 (3.9-5) g/dL Albumin/Globulin Ratio 1.3 % Lipase 21 (13-60) units/L HCG, Qual (Negative) Urine Color (Yellow) Urine Turbidity (Clear) Urine pH (5.0-7.0) Ur Specific [place] (1.003-1.030) Urine Protein (Negative) mg/dL Urine Glucose (UA) (Negative) mg/dL Urine Ketones (Negative) mg/dL Urine Blood (Negative) Urine Nitrite (Negative) Urine Bilirubin (Negative) Urine Urobilinogen (<2.0) mg/dL Ur Leukocyte Esterase (Negative) Urine WBC (Auto) (0.0-6.0) /HPF Urine RBC (Auto) (0.0-6.0) /HPF U Epithel Cells (Auto) (0-13.0) /HPF Urine Bacteria (Auto) (Negative) /HPF Urine Mucus /HPF 05/15/18 05/15/18 Range/Units Unknown Unknown WBC (4.5-11.0) K/mm3 RBC (3.65-5.03) M/mm3 Hgb (10.1-14.3) gm/dl Hct (30.3-42.9) % MCV (79-97) fl MCH (28-32) pg MCHC (30-34) % RDW (13.2-15.2) % Plt Count (140-440) K/mm3 Lymph % (Auto) (13.4-35.0) % [place] % (Auto) (0.0-7.3) % Eos % (Auto) (0.0-4.3) % Baso % (Auto) (0.0-1.8) % Lymph # (1.2-5.4) K/mm3 [place] # (0.0-0.8) K/mm3 Eos # (0.0-0.4) K/mm3 Baso # (0.0-0.1) K/mm3 Seg Neutrophils % (40.0-70.0) % Seg Neutrophils # (1.8-7.7) K/mm3 Sodium (137-145) mmol/L Potassium (3.6-5.0) mmol/L Chloride (98-107) mmol/L Carbon Dioxide (22-30) mmol/L Anion Gap mmol/L BUN (7-17) mg/dL Creatinine (0.7-1.2) mg/dL Estimated GFR ml/min BUN/Creatinine Ratio % Glucose (65-100) mg/dL Calcium (8.4-10.2) mg/dL Magnesium (1.7-2.3) mg/dL Total Bilirubin (0.1-1.2) mg/dL AST (5-40) units/L ALT (7-56) units/L Alkaline Phosphatase (35-129) units/L Total Protein (6.3-8.2) g/dL Albumin (3.9-5) g/dL Albumin/Globulin Ratio % Lipase (13-60) units/L HCG, Qual Negative (Negative) Urine Color Yellow (Yellow) Urine Turbidity Cloudy (Clear) Urine pH 6.0 (5.0-7.0) Ur Specific [place] 1.021 (1.003-1.030) Urine Protein 30 mg/dl (Negative) mg/dL Urine Glucose (UA) 50 (Negative) mg/dL Urine Ketones Tr (Negative) mg/dL Urine Blood Sm (Negative) Urine Nitrite Neg (Negative) Urine Bilirubin Neg (Negative) Urine Urobilinogen 2.0 (<2.0) mg/dL Ur Leukocyte Esterase Neg (Negative) Urine WBC (Auto) 2.0 (0.0-6.0) /HPF Urine RBC (Auto) 1.0 (0.0-6.0) /HPF U Epithel Cells (Auto) 26.0 H (0-13.0) /HPF Urine Bacteria (Auto) 1+ (Negative) /HPF Urine Mucus 3+ /HPF - Medical Decision Making Other differential: Biliary colic, pancreatitis, Persistent nausea and after initial Zofran by symptoms finally improved after receiving additional Reglan, Benadryl, and Zofran dose. Patient also treated with IV Protonix, morphine, and received IV fluids. Patient reports feeling a lot better Prefers [place] Phenergan for nausea tolerated po KCL prior to d/c Will be treated with tramadol for pain as well - Differential Diagnosis dehydration, electrolyte abnormality, gastroenteritis, abdominal migraine Critical Care Time: No Critical care attestation.: If time is entered above; I have spent that time in minutes in the direct care of this critically ill patient, excluding procedure time. ED Disposition Clinical Impression: Gastritis, Hypokalemia Disposition: - TO HOME OR SELFCARE Is pt being admited?: No Does the pt Need Aspirin: No Condition: Stable Instructions: Gastritis (ED), Hypokalemia (ED) Additional Instructions: Take the medication as prescribed. Follow up with your doctor. Return if symptoms worsen as indicated by your discharge instructions Prescriptions: Potassium Chloride [K-Dur] 20 meq PO BID #6 tab Promethazine [Phenergan] 25 mg VT Q6HR PRN #20 supp.rect PRN Reason: Nausea And Vomiting traMADol [Ultram 50 MG tab] 50 mg PO Q6HR PRN #20 tablet PRN Reason: Pain Referrals: PRIMARY CARE, [Primary Care Provider] - 3-5 Days [facility] [Provider Group] - 3-5 Days Time of Disposition: 15:13
[2018-05-15] MEDS ORDERED: D5NS 1,000 ML IV SCH (11:00)
[2018-05-15 11:22] LABS: Basophils # (Auto) 0.1 K/mm3 (0.0-0.1); Basophils % (Auto) 0.6 % (0.0-1.8); Eosinophils % (Auto) 0.1 % (0.0-4.3); Hematocrit 48.2 % (30.3-42.9); Lymphocytes # (Auto) 1.8 K/mm3 (1.2-5.4); Lymphocytes % (Auto) 14.2 % (13.4-35.0); Mean Corpuscular HGB Conc 33 % (30-34); Mean Corpuscular Hemoglobin 28 pg (28-32); Mean Corpuscular Volume 85 fl (79-97); Monocytes # (Auto) 0.8 K/mm3 (0.0-0.8); Monocytes % (Auto) 6.3 % (0.0-7.3); Platelet Count 264 K/mm3 (140-440); Red Blood Count 5.68 M/mm3 (3.65-5.03); Red Cell Distribution Width 13.8 % (13.2-15.2)
[2018-05-15 12:14] LABS: Alanine Aminotransferase 16 units/L (7-56); Albumin 4.6 g/dL (3.9-5); BUN/Creatinine Ratio 10; Blood Urea Nitrogen 8 mg/dL (7-17); Calcium 9.4 mg/dL (8.4-10.2); Hemolysis Index 12
[2018-05-15] MEDS ORDERED: K-DUR PO ONE ×2 (12:18→14:45)
[2018-05-15 12:46] LABS: Bacteria,Urine 1+ /HPF (Negative); Bilirubin,Urine NEG (Negative); Blood,Urine SM (Negative); Color,Urine Yellow (Yellow); Mucus,Urine 3+ /HPF
[2018-05-15] MEDS ORDERED: REGLAN IV ONE (12:50)
[2018-05-15] MEDS ORDERED: BENADRYL IV ONE (12:50)
[2018-05-15] MEDS ORDERED: NACL 0.9% 1000 ML 1,000 ML IV ONE (12:51)
[2018-05-15] MEDS ORDERED: MORPHINE IV ONE (13:07)
[2018-05-15 15:35] VITALS: BP 136/52
== END 2018-05-15 15:33 | disposition home or self-care (01) ==
LOC: ED 08:21
DX: K29.70 Gastritis, unspecified, without bleeding (principal); E87.6 Hypokalemia; Z88.0 Allergy status to penicillin; F31.9 Bipolar disorder, unspecified
CPT/HCPCS: 36415; 80053; 81001; 83690; 83735; 84703; 85025; 96361; 96365; 96375; 96376; 99284; J1200; J2270; J2405; J2765; J7030; J7042